=== PATIENT | female | born 2000 ===

== ENCOUNTER 2021-09-26 20:59 | Emergency (ER) | payer SELFPAY | END 2021-09-26 21:00 | disposition left against medical advice (07) | LOC: EDBD → ED 20:59 | DX: O26.90 Pregnancy related conditions, unspecified, unspecified trimester (principal); R10.9 Unspecified abdominal pain; Z53.21 Procedure and treatment not carried out due to patient leaving prior to being seen by health care provider; Z3A.00 Weeks of gestation of pregnancy not specified ==